=== PATIENT | male | born 1950 | race Hispanic/Latino ===

== ENCOUNTER 2020-10-14 20:01 | Emergency (ER) | payer MEDICARE, OTHER ==
[2020-10-14] MEDS ORDERED: BENZONATATE 100 MG CAP PO ONE (20:58)
[2020-10-14] MEDS ORDERED: ALBUTEROL INHALER 60 PUFF/8 GM IH ONE (20:59)
[2020-10-14] MEDS ORDERED: predniSONE 20 MG TAB ONE (20:59)
--- NOTE | 2020-10-14 21:26 | RAD REPORT ---
EXAM DESCRIPTION: RAD - Chest Single View - 10/14/2020 9:20 pm CLINICAL HISTORY: COUGH Chest pain. COMPARISON: No comparisons FINDINGS: Portable technique limits examination quality. Moderate bilateral pulmonary opacities are noted most compatible with underlying viral infection. The heart is upper limit normal in size. No displaced fractures.
--- NOTE | 2020-10-14 22:31 | EDPHYS ---
Physician Documentation [facility] Name: Melvin Renee Age: 70 yrs Sex: Male : 1950 Arrival Date: 10/14/2020 Time: 20:04 Bed 8 Private MD: ED Physician Elpidio Cole HPI: 10/14 20:45 This 70 yrs old Male presents to ER via Ambulatory with complaints of COVID+, cp Cough, Shortness Of Breath. 20:45 The patient or guardian reports cough, described as moderate, with no sputum. Onset: cp The symptoms/episode began/occurred 10 day(s) ago. Associated signs and symptoms: Pertinent positives: chest pain, with cough, Pertinent negatives: diarrhea, fever, vomiting. Severity of symptoms: in the emergency department the symptoms are unchanged despite home interventions. 20:45 Patient reports he finished last dose of Zithromax today and that he tested positive cp for COVID-19 on 10-11-2020. Historical: - Allergies: 20:28 No Known Allergies; ca1 - Home Meds: 20:28 lisinopril 20 mg Oral tab 1 tab once daily [Active]; Metformin Oral [Active]; ca1 - PMHx: 20:28 Hypertension; Diabetes - NIDDM; ca1 - PSHx: 20:28 back surgery; ca1 - Immunization history:: Pneumococcal vaccine is not up to date, Flu vaccine is not up to date. - Social history:: Smoking status: Patient denies any tobacco usage or history of. ROS: 20:50 Constitutional: Negative for body aches, chills, fever, poor PO intake. cp 20:50 Eyes: Negative for injury, pain, redness, and discharge. cp 20:50 Cardiovascular: Positive for chest pain, with cough, Negative for edema, palpitations. 20:50 Respiratory: Positive for cough, with no reported sputum, Negative for wheezing. 20:50 Abdomen/GI: Negative for abdominal pain, nausea, vomiting, and diarrhea. 20:50 Back: Negative for radiated pain. 20:50 Neuro: Negative for altered mental status, headache, syncope, weakness. 20:50 All other systems are negative. Exam: 21:00 Constitutional: The patient appears in no acute distress, alert, awake, cp non-diaphoretic, non-toxic, well developed, well nourished. 21:00 Head/Face: Normocephalic, atraumatic. cp 21:00 Eyes: Periorbital structures: appear normal, Conjunctiva: normal, no exudate, no injection, Sclera: no appreciated abnormality, Lids and lashes: appear normal, bilaterally. 21:00 ENT: External ear(s): are unremarkable, Nose: is normal, Mouth: Lips: moist, Oral mucosa: pink and intact, moist, Posterior pharynx: Airway: no evidence of obstruction, patent. 21:00 Neck: ROM/movement: is normal, is supple, without pain, no range of motions limitations. 21:00 Chest/axilla: Inspection: normal, Palpation: is normal, no crepitus, no tenderness. 21:00 Cardiovascular: Rate: tachycardic, Rhythm: regular, Edema: is not appreciated, JVD: is not appreciated. 21:00 Respiratory: the patient does not display signs of respiratory distress, Respirations: normal, no use of accessory muscles, no retractions, labored breathing, is not present, Breath sounds: bronchial sounds, that are mild, are heard diffusely, decreased breath sounds, are not appreciated, stridor, is not appreciated, wheezing: is not appreciated. 21:00 Abdomen/GI: Inspection: abdomen appears normal, Bowel sounds: active, all quadrants, Palpation: abdomen is soft and non-tender, in all quadrants. 21:00 Back: pain, is absent, ROM is normal. 21:00 Skin: no rash present. 21:00 Neuro: Orientation: to person, place \T\ time. Mentation: is normal, Motor: moves all fours, strength is normal. Vital Signs: 20:23 BP 148 / 80; Pulse 113; Resp 20 S; Temp 97.6(TE); Pulse Ox 95% on R/A; Weight 76.2 kg ca1 (R); Height 5 ft. 7 in. (170.18 cm) (R); 20:49 BP 162 / 90; Pulse 111; Resp 18; Pulse Ox 94% on R/A; rv 21:23 BP 147 / 74; Pulse 104; Resp 19; Pulse Ox 94% ; rr5 22:23 BP 131 / 78; Pulse 99; Resp 17; Temp 98; Pulse Ox 94% ; rv 22:40 BP 139 / 75; Pulse 92; Resp 19; Pulse Ox 94% ; rr5 20:23 Body Mass Index 26.31 (76.20 kg, 170.18 cm) ca1 22:23 POST AMBULATION rv MDM: 20:26 Patient medically screened. cp 21:00 Differential diagnosis: bronchitis, flu, URI, respiratory failure, pneumonia. cp 22:30 Data reviewed: vital signs, nurses notes, radiologic studies, plain films. cp 22:30 Counseling: I had a detailed discussion with the patient and/or guardian regarding: the cp historical points, exam findings, and any diagnostic results supporting the discharge/admit diagnosis, radiology results, the need for outpatient follow up, a family practitioner, to return to the emergency department if symptoms worsen or persist or if there are any questions or concerns that arise at home. ED course: VSS. Patient appears non-toxic and no signs of respiratory distress. Oxygen sats remain 94% on room air. Will discharge to home for continued monitoring. 10/14 20:40 Order name: XRAY Chest (1 view); Complete Time: 22:10 cp 10/14 22:10 Interpretation: Report reviewed. cp Administered Medications: 20:48 Drug: Tessalon Perle 200 mg Route: PO; rv 22:24 Follow up: Response: No adverse reaction rv 20:48 Drug: predniSONE 60 mg Route: PO; rv 20:48 Follow up: Response: No adverse reaction rv 20:50 Drug: Albuterol HFA Inhaler 2 puffs Route: Inhalation; rv 22:25 Follow up: Response: Marked relief of symptoms rv Disposition: 10/15 19:31 Co-signature as Attending Physician, Elpidio Cole MD. [email or web address] Disposition: 10/14/20 22:30 Discharged to Home. Impression: Coronavirus infection, unspecified, Pneumonia due to other specified infectious organisms. - Condition is Stable. - Discharge Instructions: Community-Acquired Pneumonia, Adult, COVID-19. - Prescriptions for ivermectin 3 mg Oral tablet - take 5 tablet by ORAL route every other day x2 dose; 10 tablet. Prednisone 20 mg Oral Tablet - take 2 tablet by ORAL route once daily for 5 days; 10 tablet. Albuterol Sulfate 90 mcg/actuation - inhale 1-2 puff by INHALATION route every 4-6 hours; 1 Inhaler. Augmentin 875- 125 mg Oral Tablet - take 1 tablet by ORAL route every 12 hours for 10 days; 20 tablet. - Medication Reconciliation Form, Thank You Letter, Antibiotic Education, Prescription Opioid Use form. - Follow up: Private Physician; When: 1 - 2 days; Reason: Recheck today's complaints. - Problem is new. - Symptoms have improved. Signatures: Dispatcher [employer] EDMS Paolo Hawkins PA PA cp Oj Reynaga RN RN rv Blane Walker RN RN rr5 Julia Lerma RN RN [facility] Elpidio Cole MD MD 7 Corrections: (The following items were deleted from the chart) 10/14 22:41 22:30 10/14/2020 22:30 Discharged to Home. Impression: Coronavirus infection, rr5 unspecified; Pneumonia due to other specified infectious organisms. Condition is Stable. Forms are Medication Reconciliation Form, Thank You Letter, Antibiotic Education, Prescription Opioid Use. Follow up: Private Physician; When: 1 - 2 days; Reason: Recheck today's complaints. Problem is new. Symptoms have improved. cp 10/15 20:38 20:35 The patient or guardian reports cough, described as moderate, with no sputum, cp cp 20:38 20:35 Onset: The symptoms/episode began/occurred 10 day(s) ago, cp cp 20:38 20:35 Associated signs and symptoms: Pertinent positives: chest pain, with cough, cp Pertinent negatives: diarrhea, fever, vomiting, cp 20:38 20:35 Severity of symptoms: in the emergency department the symptoms are unchanged cp despite home interventions, cp
--- NOTE | 2020-10-14 22:31 | ER ---
Nurse's Notes [facility] Name: Melvin Renee Age: 70 yrs Sex: Male : 1950 Arrival Date: 10/14/2020 Time: 20:04 Bed 8 Private MD: Diagnosis: Coronavirus infection, unspecified;Pneumonia due to other specified infectious organisms Presentation: 10/14 20:23 Chief complaint: Patient states: Covid+ 10/11/2020. Symptoms started a week before and ca1 also had bronchitis. Am here cause I cough too much and when I cough too much my chest hurts. Reports SOB with exertion. Coronavirus screen: Client reports previous positive COVID test result. Date of collection: October 11, 2020. Ebola Screen: Patient negative for fever greater than or equal to 101.5 degrees Fahrenheit, and additional compatible Ebola Virus Disease symptoms Patient denies exposure to infectious person. Patient denies travel to an Ebola-affected area in the 21 days before illness onset. No symptoms or risks identified at this time. Initial Sepsis Screen: Does the patient meet any 2 criteria? No. Patient's initial sepsis screen is negative. Does the patient have a suspected source of infection? No. Patient's initial sepsis screen is negative. Risk Assessment: Do you want to hurt yourself or someone else? Patient reports no desire to harm self or others. Onset of symptoms was October 14, 2020. 20:23 Method Of Arrival: Ambulatory ca1 20:23 Acuity: SERVANDO 3 ca1 Triage Assessment: 20:50 General: Appears comfortable. Respiratory: Reports shortness of breath at rest on rv exertion Onset: The symptoms/episode began/occurred the patient has mild shortness of breath. Historical: - Allergies: 20:28 No Known Allergies; ca1 - Home Meds: 20:28 lisinopril 20 mg Oral tab 1 tab once daily [Active]; Metformin Oral [Active]; ca1 - PMHx: 20:28 Hypertension; Diabetes - NIDDM; ca1 - PSHx: 20:28 back surgery; ca1 - Immunization history:: Pneumococcal vaccine is not up to date, Flu vaccine is not up to date. - Social history:: Smoking status: Patient denies any tobacco usage or history of. Screenin:27 Abuse screen: Denies threats or abuse. Denies injuries from another. Nutritional rr5 screening: No deficits noted. Tuberculosis screening: No symptoms or risk factors identified. 20:50 Fall Risk None identified. rv Assessment: 20:49 General: Appears comfortable, Behavior is calm, cooperative. Pain: Denies pain. Neuro: rv Level of Consciousness is awake, alert, obeys commands, Oriented to person, place, time, situation. Cardiovascular: Patient's skin is warm and dry. Rhythm is sinus tachycardia. Respiratory: Airway is patent Respiratory effort is even, unlabored, Breath sounds are coarse bilaterally. Derm: Skin is intact. 22:00 Reassessment: Patient appears in no apparent distress at this time. Patient is alert, rr5 oriented x 3, equal unlabored respirations, skin warm/dry/pink. Patient states feeling better. Patient states symptoms have improved. 22:39 Reassessment: Patient appears in no apparent distress at this time. Patient is alert, rr5 oriented x 3, equal unlabored respirations, skin warm/dry/pink. discharge instruction given and explained without complaints made Patient states feeling better. Patient states symptoms have improved. Vital Signs: 20:23 BP 148 / 80; Pulse 113; Resp 20 S; Temp 97.6(TE); Pulse Ox 95% on R/A; Weight 76.2 kg ca1 (R); Height 5 ft. 7 in. (170.18 cm) (R); 20:49 BP 162 / 90; Pulse 111; Resp 18; Pulse Ox 94% on R/A; rv 21:23 BP 147 / 74; Pulse 104; Resp 19; Pulse Ox 94% ; rr5 22:23 BP 131 / 78; Pulse 99; Resp 17; Temp 98; Pulse Ox 94% ; rv 22:40 BP 139 / 75; Pulse 92; Resp 19; Pulse Ox 94% ; rr5 20:23 Body Mass Index 26.31 (76.20 kg, 170.18 cm) ca1 22:23 POST AMBULATION rv ED Course: 20:04 Patient arrived in ED. bp1 20:25 Blane Walker RN is Primary Nurse. rr5 20:26 Paolo Hawkins PA is PHCP. cp 20:26 Triage completed. ca1 20:28 Arm band placed on right wrist. ca1 20:50 Patient has correct armband on for positive identification. Pulse ox on. NIBP on. rv 20:50 No provider procedures requiring assistance completed. Patient did not have IV access rv during this emergency room visit. 21:20 XRAY Chest (1 view) In Process Unspecified. EDMS 22:31 Elpidio Cole MD is Attending Physician. cp Administered Medications: 20:48 Drug: Tessalon Perle 200 mg Route: PO; rv 22:24 Follow up: Response: No adverse reaction rv 20:48 Drug: predniSONE 60 mg Route: PO; rv 20:48 Follow up: Response: No adverse reaction rv 20:50 Drug: Albuterol HFA Inhaler 2 puffs Route: Inhalation; rv 22:25 Follow up: Response: Marked relief of symptoms rv Outcome: 22:24 Discharged to home ambulatory. rv 22:24 Condition: improved 22:24 Discharge instructions given to patient, Instructed on discharge instructions, follow up and referral plans. 22:30 Discharge ordered by MD. cp 22:40 Discharge instructions given to Instructed on medication usage, Demonstrated rr5 understanding of instructions, follow-up care, medications, Prescriptions given X 4. 22:41 Patient left the ED. rr5 Signatures: Dispatcher [employer] EDMS Paolo Hawkins PA PA cp Oj Reynaga RN RN rv Blane Walker RN RN rr5 Julia Lerma RN RN ca1 Mariah Spring bp1
[2020-10-14 22:48] VITALS: O2SAT 94
[2020-10-14 22:51] VITALS: TEMP 98
[2020-10-14 22:53] VITALS: BP 139/75
== END 2020-10-14 22:41 | disposition home or self-care (01) ==
LOC: ER 20:01
DX: U07.1 COVID-19 (principal); J16.8 Pneumonia due to other specified infectious organisms; I10 Essential (primary) hypertension; E11.9 Type 2 diabetes mellitus without complications
CPT/HCPCS: 71045; 99285; J7512